=== PATIENT | female | born 1990 | race Caucasian/White ===

== ENCOUNTER 2019-10-15 17:51 | Emergency (ER) | payer MEDICAID, SELFPAY ==
[2019-10-15 17:59] VITALS: BP 120/79; PULSE 108; RESP 18; TEMP 37.1; O2SAT 95; BMI 58.2
--- NOTE | 2019-10-15 18:03 | XR_ITS ---
WS: [id number] Portable AP upright chest, 10/15/2019 Clinical Data: syncopal episode Comparison: Portable chest, 03/26/2019. Findings: No nodules, masses or effusions are seen. The heart is normal. The pulmonary vascularity is not increased. No pneumonia or pneumothorax is seen. XR/XR chest 1V portable [id number] Impression: Negative chest.
--- NOTE | 2019-10-15 18:03 | CTR_ITS ---
PROCEDURE INFORMATION: Exam: CT Head Without Contrast Exam date and time: 10/15/2019 6:24 PM Age: 29 years old Clinical indication: Pain; Dizziness and visual disturbance; Headache; Additional info: Syncopy TECHNIQUE: Imaging protocol: Computed tomography of the head without contrast. Radiation optimization: All CT scans at this facility use at least one of these dose optimization techniques: automated exposure control; mA and/or kV adjustment per patient size (includes targeted exams where dose is matched to clinical indication); or iterative reconstruction. COMPARISON: No relevant prior studies available. RADIATION DOSE METRICS: Total DLP (mGy-cm): 886.27 FINDINGS: Brain: Normal. No hemorrhage. Unremarkable white matter. No mass effect. Ventricles: Normal. No ventriculomegaly. Bones/joints: Unremarkable. No acute fracture. Sinuses: Visualized sinuses are unremarkable. No fluid levels. Mastoid air cells: Visualized mastoid air cells are well aerated. Soft tissues: Unremarkable. CT/CT head wo con* [id number] IMPRESSION: No acute intracranial abnormality. Radiation Dose CTDIVOL = (mGy): DLP = 886.27 (mGy-cm)
--- NOTE | 2019-10-15 18:04 | ECG_ITS ---
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 Measurements Intervals [place] Rate: 75 P: 28 [place]: 152 QRS: 30 QRSD: 90 T: 32 QT: 384 QTc: 431 Interpretive Statements SINUS RHYTHM WITH SINUS ARRHYTHMIA POSSIBLE RIGHT VENTRICULAR CONDUCTION DELAY [RSR (QR) IN V1/V2] No previous ECG available for comparison Electronically Signed On 10-15-2019 22:36:08 CDT by Shey Mireles M.D. [email or web address] Softwareochsner medical centerRevcastercleveland clinic [facility].[employer]/store/NU/[id number] f
--- NOTE | 2019-10-15 18:08 | W.ED.SYNCOPE ---
HPI - Syncope General: Chief Complaint: Syncope Stated Complaint: passed out Time Seen by Provider: 10/15/19 18:00 History of Present Illness: HPI narrative: Patient is a 29-year-old female comes to the ED after syncopal episode. Patient has been homeless and living outside for the past couple days. I have not had much to eat and drink patient describes that she was sitting on the ground and then started feeling tingly in her upper extremities and then lost consciousness. Patient sister was present during syncopal episode and states that patient looked pale and white and then she passed out. Sister denies patient ever hitting her head. No convulsing or shaking during syncopal episode seen by sister and she said it lasted approximately 45 seconds. When patient came to she was confused. since patient has awakened after syncopal episode she described having a headache and feeling a little nauseous. Denies any chest pain, shortness of breath, abdominal pain, vomiting or bladder/bowel symptoms. Associated symptoms: Reports headache(s), lightheadedness and nausea; Deny abdominal pain, chest pain or fever(s) Review of Systems Const: Denies: fever(s), chills or fatigue Eyes: Reports: blurry vision; Denies: change in vision or eye discomfort ENMT: Denies: throat pain, odynophagia, nasal discharge or nasal congestion Card: Reports: lightheadedness and syncope; Denies: chest pain, palpitations, edema, swelling of feet/ankles, dyspnea on exertion or orthopnea Resp: Denies: dyspnea, productive cough or non-productive cough GI: Reports: nausea; Denies: abdominal pain, vomiting, diarrhea, constipation or hematochezia : Denies: flank pain, dysuria or hematuria Musc: Denies: neck pain, back pain or extremity swelling Skin/Breast: Denies: rash or new lesions Neuro: Reports: headache(s); Denies: numbness in extremities or weakness in extremities PFSH ED PFSH: Medical History Nicotine dependence, unspecified, uncomplicated Surgical History H/O section History of cholecystectomy Family History Other COPD (chronic obstructive pulmonary disease) Cancer Diabetes Hypertension Psychiatric illness Social History Smoking and tobacco status: current every day smoker cigarettes Packs smoked per day: 0.5 Alcohol intake: never Physical Exam Const: COMMON NORMALS: no acute distress, patient oriented x3 and alert GENERAL APPEARANCE: cooperative and comfortable NUTRITIONAL APPEARANCE: obese HENMT: COMMON NORMALS: normocephalic HEAD & SCALP: normocephalic MOUTH: Normal oral and palatal mucosa present and moist mucous membranes abnormal (mild ) Details: parched THROAT: posterior oropharynx normal and uvula midline Eye: COMMON NORMALS: Equal, round and reactive pupils present, EOMs intact bilaterally and normal visual thompson by confrontation PUPIL: Yes Equal, round and reactive pupils present Neck/C-Spine: COMMON NORMALS: supple GENERAL: Yes normal visual inspection Resp: COMMON NORMALS: normal respiratory effort, No retractions, No use of accessory muscles and clear to auscultation bilaterally AUSCULTATION: clear to auscultation bilaterally Cardio: COMMON NORMALS: regular rate, regular rhythm, S1 normal heart sound present, S2 normal heart sound present, No gallops present (Cardio), No clicks present (Cardio), No murmurs present (Cardio) and Peripheral pulses 2+ throughout RATE: regular rate RHYTHM: regular rhythm HEART SOUNDS: S1 normal heart sound present and S2 normal heart sound present PERIPHERAL PULSES: Peripheral pulses 2+ throughout GI: COMMON NORMALS: Normal to inspection, nondistended, normoactive bowel sounds present, Soft to palpation, non-tender and no masses INSPECTION: Yes central obesity PALPATION: Yes Soft to palpation : COMMON NORMALS: Yes no CVA tenderness BLADDER/KIDNEY EXAM: Yes no CVA tenderness Back/Pelvis: COMMON NORMALS: no CVA tenderness Extremity: COMMON NORMALS: normal to inspection, capillary refill normal and no pedal edema Neuro: JAYDE COMA SCALE: document GCS findings [place] coma scale eye opening: Spontaneous [place] coma scale verbal response: Orientated [place] coma scale motor response: Obey commands Jayde coma scale total score: 15 COMMON NORMALS: patient oriented x3, CN's II-XII intact bilaterally, moves all extremities, no focal motor deficits and no sensory deficits noted SENSORIUM/ORIENTATION: Yes alert COORDINATION/BALANCE: [id number]-fv-[id number] test normal SPEECH: speech normal MOTOR EXAM: 5/5 motor strength present throughout COORDINATION: [id number] test normal Skin: COMMON NORMALS: no rashes or lesions noted GENERAL SKIN EXAM: no rashes or lesions noted and dry skin Course Vital Signs: Vital signs: Vital Signs Temperature 98.7 F 10/15/19 17:59 Pulse Rate 75 10/15/19 22:19 Respiratory Rate 17 10/15/19 22:19 Blood Pressure 118/69 10/15/19 22:19 Pulse Oximetry 94 10/15/19 22:19 MDM - Syncope MDM Narrative: Medical decision making narrative: Patient is a 29-year-old female comes to the ED after having a syncopal episode. Patient has been homeless and living outside the past 3 days. Sister was present and saw syncopal episode and said patient sat down and then she was gently laid down when she passed out. Denies any head trauma, bladder or bowel incontinence, shaking/convulsions during syncopal episode. Syncopal episode lasted approximately 45 seconds. Patient. Mildly dehydrated and had dry mucous membranes. Neuro exam was normal. White blood cell 12.5. CMP and UA were unremarkable. hCG was negative. EKG showed normal sinus rhythm and troponins were negative. CT of the head showed no acute findings. Patient started feeling a lot better after receiving 2 L of IV fluids. Patient diagnosed with syncopal episode due to heat. Follow-up with provider in 7 to 10 days for reevaluation. Return to ED if symptoms worsen. Patient understood and agreed with plan. Lab Data: Attestation: I reviewed the patient's lab results. Labs: Lab Results 10/15/19 10/15/19 10/15/19 Range/Units 18:14 18:14 18:14 WBC 12.5 H (4.0-10.0) 10^3/ uL RBC 5.14 (4.1-5.3) 10^6/u L Hgb 14.8 (11.5-15.3) g/dL Hct 46.8 (37.0-47.0) % MCV 91.1 (81-99) fL MCH 28.8 (28.0-34.0) pg MCHC 31.6 (30.0-36.0) g/dL RDW 13.2 (12.1-15.1) % Plt Count 361 (130-400) 10^3/c mm MPV 9.8 (7.4-10.4) fL Neut % (Auto) 62.6 % Lymph % (Auto) 28.6 % [place] % (Auto) 5.6 % Eos % (Auto) 2.2 % Baso % (Auto) 0.6 % Neut # (Auto) 7.82 H (1.8-7.7) 10^3/u L Lymph # (Auto) 3.6 (0.8-4.8) 10^3/u L [place] # (Auto) 0.7 (0.2-0.9) 10^3/u L Eos # (Auto) 0.3 (0.0-0.8) 10^3/u L Baso # (Auto) 0.1 (0.0-0.1) 10^3/u L Nucleated RBC % (a uto) 0 % Nucleated RBCs # 0.0 /100WBC Sodium 137 (136-145) mmol/L Potassium 4.0 (3.5-5.1) mmol/L Chloride 104 (98-107) mmol/L Carbon Dioxide 24 (22-29) mmol/L Anion Gap 13.0 (5-19) BUN 11 (6-20) mg/dL Creatinine 0.9 (0.5-0.9) mg/dL GFR Calculation 73.5 L (90-130) mL/min Glucose 145 H (65-115) mg/dL Calculated Osmolal ity 283 L (285-295) mOsm/k g Calcium 8.9 (8.5-10.5) mg/dL Total Bilirubin 0.2 (0.15-1.2) mg/dL AST 32 (0-32) U/L ALT 36 H (0-33) U/L Alkaline Phosphata se 107 H (35-105) IU/L Troponin T Baselin e (0-10) ng/L Troponin T 120 Min makah (0-10) ng/L Delta Troponin T (0-10) ABS# Total Protein 7.0 (6.6-8.7) g/dL Albumin 4.2 (3.5-5.2) g/dL Globulin 2.8 (1.3-4.6) g/dL HCG, Qual Negative (Negative) Urine Color (Yellow) Urine Appearance (CLEAR) Urine pH (5-7) Ur Specific Gravit y (1.005-1.030) Urine Protein (Negative) Urine Glucose (UA) (Normal) Urine Ketones (Negative) Urine Blood (Negative) Urine Nitrate (Negative) Urine Bilirubin (NEGATIVE) Urine Urobilinogen (Negative) mg/dL Ur Leukocyte Rhina ase (Negative) Urine RBC (0-2) /hpf Urine WBC (0-5) /hpf Ur Squamous Epith Cells (0-5) Amorphous Sediment Urine Bacteria (NONE) 10/15/19 10/15/19 10/15/19 Range/Units 18:14 19:39 20:13 WBC (4.0-10.0) 10^3/ uL RBC (4.1-5.3) 10^6/u L Hgb (11.5-15.3) g/dL Hct (37.0-47.0) % MCV (81-99) fL MCH (28.0-34.0) pg MCHC (30.0-36.0) g/dL RDW (12.1-15.1) % Plt Count (130-400) 10^3/c mm MPV (7.4-10.4) fL Neut % (Auto) % Lymph % (Auto) % [place] % (Auto) % Eos % (Auto) % Baso % (Auto) % Neut # (Auto) (1.8-7.7) 10^3/u L Lymph # (Auto) (0.8-4.8) 10^3/u L [place] # (Auto) (0.2-0.9) 10^3/u L Eos # (Auto) (0.0-0.8) 10^3/u L Baso # (Auto) (0.0-0.1) 10^3/u L Nucleated RBC % (a uto) % Nucleated RBCs # /100WBC Sodium (136-145) mmol/L Potassium (3.5-5.1) mmol/L Chloride (98-107) mmol/L Carbon Dioxide (22-29) mmol/L Anion Gap (5-19) BUN (6-20) mg/dL Creatinine (0.5-0.9) mg/dL GFR Calculation (90-130) mL/min Glucose (65-115) mg/dL Calculated Osmolal ity (285-295) mOsm/k g Calcium (8.5-10.5) mg/dL Total Bilirubin (0.15-1.2) mg/dL AST (0-32) U/L ALT (0-33) U/L Alkaline Phosphata se (35-105) IU/L Troponin T Baselin e 6 (0-10) ng/L Troponin T 120 Min makah 6.00 (0-10) ng/L Delta Troponin T 0 (0-10) ABS# Total Protein (6.6-8.7) g/dL Albumin (3.5-5.2) g/dL Globulin (1.3-4.6) g/dL HCG, Qual (Negative) Urine Color Yellow (Yellow) Urine Appearance Clear (CLEAR) Urine pH 5 (5-7) Ur Specific Gravit y 1.020 (1.005-1.030) Urine Protein Neg (Negative) Urine Glucose (UA) Norm (Normal) Urine Ketones Negative (Negative) Urine Blood 2+ H (Negative) Urine Nitrate Negative (Negative) Urine Bilirubin Neg (NEGATIVE) Urine Urobilinogen Norm (Negative) mg/dL Ur Leukocyte Rhina ase Negative (Negative) Urine RBC 5-10 H (0-2) /hpf Urine WBC None (0-5) /hpf Ur Squamous Epith Cells 0-4 H (0-5) Amorphous Sediment Not Reportable Urine Bacteria Trace (NONE) Imaging Data^: CT Head: Attestation: I personally reviewed and interpreted this imaging study as follows: Radiologist's impression: [place] [address] CT Scan Report Signed Patient: Jeanie Ace Unit #: [id number] : 1990 Age/Sex: 29 / F ADM Date: 10/15/19 Loc: ER Room/Bed: Attending Dr: Ordering Provider/Ordering MD: Tristen Lucas Date of Service: 10/15/19 Procedure(s): CT head wo con* [id number] Accession Number(s): [id number] Report Number: [id number] PROCEDURE INFORMATION: Exam: CT Head Without Contrast Exam date and time: 10/15/2019 6:24 PM Age: 29 years old Clinical indication: Pain; Dizziness and visual disturbance; Headache; Additional info: Syncopy TECHNIQUE: Imaging protocol: Computed tomography of the head without contrast. Radiation optimization: All CT scans at this facility use at least one of these dose optimization techniques: automated exposure control; mA and/or kV adjustment per patient size (includes targeted exams where dose is matched to clinical indication); or iterative reconstruction. COMPARISON: No relevant prior studies available. RADIATION DOSE METRICS: Total DLP (mGy-cm): 886.27 FINDINGS: Brain: Normal. No hemorrhage. Unremarkable white matter. No mass effect. Ventricles: Normal. No ventriculomegaly. Bones/joints: Unremarkable. No acute fracture. Sinuses: Visualized sinuses are unremarkable. No fluid levels. Mastoid air cells: Visualized mastoid air cells are well aerated. Soft tissues: Unremarkable. CT/CT head wo con* [id number] IMPRESSION: No acute intracranial abnormality. Radiation Dose CTDIVOL = (mGy): DLP = 886.27 (mGy-cm) Dictated By: Hussein Edwards Signed By: Hussein Edwards Signed Date/Time: 10/15/191914 DD/ 13 CXR: Attestation: I personally reviewed and interpreted this imaging study as follows: My impression: No acute findings. Pending final radiology report. EKG Data^: EKG 1: Attestation: I personally reviewed and interpreted this EKG as follows: EKG interpretation date: 10/15/19 Interpretation: Normal sinus rhythm, 87 bpm, no ST segment elevation or depression seen, P waves present. Discharge Plan Discharge Patient Disposition: Home, Self-Care Clinical Impression: Effects of heat syncope Qualifiers: Encounter type: initial encounter Qualified Code(s): T67.1XXA - Heat syncope, initial encounter Condition: Stable Prescriptions: No Action No Known Home Medications RF: 0 Discharge Orders: Discharge Order (Routine); Ordered 10/15/19 Ordered By: Tristen Lucas Referrals: Sandra Pedraza DO [Primary Care Provider] - Discharge Diet: Regular Discharge Activity: Increase activity as tolerated Patient Instructions: Heat Exhaustion (ED), Syncope (ED) Activity Restrictions/Additional Instructions: Follow-up with medical provider as directed in 7-10 days. Drink plenty of fluids and stay hydrated. Return to the ER or your medical provider if condition worsens. Please read and understand discharge instructions. If any questions, please ask. Discharge Date/Time: 10/15/19 22:19 Coding Level of Care Code ED Tire Technician for Chg Fwd Exam Comprehensive
[2019-10-15 18:24] LABS: Basophils # 0.1 10^3/uL (0.0-0.1); Basophils % 0.6 %; Eosinophils # 0.3 10^3/uL (0.0-0.8); Eosinophils % 2.2 %; Hematocrit 46.8 % (37.0-47.0); Hemoglobin 14.8 g/dL (11.5-15.3); Lymphocytes # 3.6 10^3/uL (0.8-4.8); Lymphocytes % 28.6 %; Mean Corpuscular HGB Conc 31.6 g/dL (30.0-36.0); Mean Corpuscular Hemoglobin 28.8 pg (28.0-34.0); Mean Corpuscular Volume 91.1 fL (81-99); Mean Platelet Volume 9.8 fL (7.4-10.4); Monocytes # 0.7 10^3/uL (0.2-0.9); Monocytes % 5.6 %; Neutrophils # 7.82 10^3/uL (1.8-7.7); Neutrophils % 62.6 %; Nucleated Red Blood Cells % 0 %; Platelet Count 361 10^3/cmm (130-400); Red Blood Count 5.14 10^6/uL (4.1-5.3); Red Cell Distribution Width 13.2 % (12.1-15.1); White Blood Count 12.5 10^3/uL (4.0-10.0)
[2019-10-15] MEDS: sodium chloride 0.9% 1,000 ML 999 ML IV ×2 (18:29→20:14)
[2019-10-15] MEDS: ondansetron 2 mg/ML SDV 2 mL 4 MG IVP (18:29)
[2019-10-15 18:42] LABS: Alanine Aminotransferase 36 U/L (0-33); Albumin Level 4.2 g/dL (3.5-5.2); Alkaline Phosphatase 107 IU/L (35-105); Aspartate Amino Transferase 32 U/L (0-32); Blood Urea Nitrogen 11 mg/dL (6-20); Calcium 8.9 mg/dL (8.5-10.5); Carbon Dioxide 24 mmol/L (22-29); Chloride 104 mmol/L (98-107); Globulin 2.8 g/dL (1.3-4.6); Glomerular Filtration Rate 73.5 mL/min (90-130); Glucose 145 mg/dL (65-115); Osmolality Calculated 283 mOsm/kg (285-295); Sodium 137 mmol/L (136-145); Total Bilirubin 0.2 mg/dL (0.15-1.2)
[2019-10-15 18:43] LABS: HCG, Serum Qual Negative (Negative); Troponin(5th) Baseline 6 ng/L (0-10)
[2019-10-15 19:04] VITALS: BP 116/79; PULSE 89; RESP 18; O2SAT 97
--- NOTE | 2019-10-15 19:04 | PC.NURSE ---
Report received from ORVILLE Hernandez and care transferred to ORVILLE Baldwin
[2019-10-15] MEDS: ketorolac 30 mg/mL INJ IVP (19:11)
[2019-10-15 19:44] VITALS: BP 116/79; PULSE 79; RESP 16; O2SAT 96
--- NOTE | 2019-10-15 20:04 | ECG_ITS ---
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 Measurements Intervals [place] Rate: 75 P: 28 [place]: 152 QRS: 30 QRSD: 90 T: 32 QT: 384 QTc: 431 Interpretive Statements SINUS RHYTHM WITH SINUS ARRHYTHMIA POSSIBLE RIGHT VENTRICULAR CONDUCTION DELAY [RSR (QR) IN V1/V2] No previous ECG available for comparison Electronically Signed On 10-15-2019 22:42:29 CDT by Shey Mireles M.D. [email or web address].[employer]/store/NU/[id number]/[id number] f
[2019-10-15 20:36] LABS: Urine Appearance Clear (CLEAR); Urine Color Yellow (Yellow)
[2019-10-15 20:37] LABS: Bilirubin Urine Neg (NEGATIVE); Blood Urine 2+ (Negative); Glucose Urine UA Norm (Normal); Ketones Urine Negative (Negative); Leukocyte Esterase Urine Negative (Negative); Nitrate Urine Negative (Negative); Protein Urine Neg (Negative); pH Urine 5 (5-7)
[2019-10-15 20:38] LABS: Add Urine Microscopic? YES; Urobilinogen Urine Norm (Negative)
[2019-10-15 20:50] LABS: Troponin 5 2HR Delta 0 ABS# (0-10)
[2019-10-15 20:59] LABS: Add Urine Culture? No; Bacteria Urine TRACE; Squamous Epithelial Cell Urine 0-4 (0-5)
[2019-10-15 21:42] VITALS: BP 112/57; PULSE 78; RESP 16; O2SAT 96
[2019-10-15 22:18] VITALS: BP 118/69; PULSE 78; RESP 17; O2SAT 94
[2019-10-15 22:19] VITALS: BP 118/69; PULSE 75; RESP 17; O2SAT 94
== END 2019-10-15 22:19 | disposition home or self-care (01) ==
PROVIDERS: Emergency Provider Physician Assistant; PCP Family Medicine
DX: T67.1XXA Heat syncope, initial encounter (principal); X30.XXXA Exposure to excessive natural heat, initial encounter; F17.210 Nicotine dependence, cigarettes, uncomplicated
CPT/HCPCS: 12345; 36415; 70450; 71045; 80053; 81001; 81003; 84484; 84703; 85025; 93005; 96361; 96374; 96375; 99284; J1885; J2405; J7030

== ENCOUNTER 2019-10-19 17:24 | Emergency (ER) | payer MEDICAID, SELFPAY ==
[2019-10-19 17:39] VITALS: BP 116/77; PULSE 97; RESP 16; TEMP 36.9; O2SAT 97; BMI 41.5
--- NOTE | 2019-10-19 17:45 | XRR_ITS ---
PROCEDURE INFORMATION: Exam: XR Left Ribs with PA Chest, 3 Views Exam date and time: 10/19/2019 5:46 PM Age: 29 years old Clinical indication: Injury or trauma; Fall; Initial encounter; Rib area, left side; Blunt trauma; Additional info: Left rib pain with inspiration TECHNIQUE: Imaging protocol: XR Left ribs 3 views with PA chest. COMPARISON: CR XR chest 1V portable [id number] 10/15/2019 6:31 PM FINDINGS: There is a fracture of the 10th anterolateral ribs. No additional rib fractures are seen. The lungs are clear. There is no pneumothorax. The heart size is normal. XR/XR ribs LT mn 3V w CXR1V [id number] IMPRESSION: Fracture of the left 10th anterolateral rib.
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
[2019-10-19 18:02] VITALS: BP 115/79; PULSE 90; RESP 16; O2SAT 96
[2019-10-19] MEDS: HYDROcodone-acetaminophen 7.5-325 mg Tablet 1 TAB PO (18:08)
[2019-10-19 18:37] VITALS: BP 115/79; PULSE 91; RESP 18; O2SAT 96
== END 2019-10-19 18:37 | disposition home or self-care (01) ==
PROVIDERS: Emergency Provider Physician Assistant; PCP Family Medicine
DX: S22.32XA Fracture of one rib, left side, initial encounter for closed fracture (principal); F17.210 Nicotine dependence, cigarettes, uncomplicated; W19.XXXA Unspecified fall, initial encounter
CPT/HCPCS: 12345; 71101; 99282; 99283

== ENCOUNTER 2022-09-19 12:55 | Emergency (ER) | payer MEDICAID, SELFPAY ==
[2022-09-19 13:05] VITALS: BP 118/82; PULSE 99; RESP 18; TEMP 36.7; O2SAT 98
--- NOTE | 2022-09-19 13:13 | XR_ITS ---
WS: [id number] EXAMINATION: XR shoulder RT min 2V* [id number] REASON FOR EXAM: Right shoulder pain for a month COMPARISON: None available. ORDER DATE: 09/19/2022 1:23 PM TECHNIQUE: 3 views of the right shoulder were obtained. X-RAY FINDINGS: No fractures or dislocations. Normal motion of the shoulder with internal/external rotation. No degenerative changes. Acromioclavicular joint appears unremarkable. Limited visualization of the adjacent hemithorax is unremarkable. XR/XR shoulder RT min 2V* [id number] IMPRESSION: No fractures or dislocations of the right shoulder.
--- NOTE | 2022-09-19 13:34 | W.ED.EXTPRO ---
HPI - Extremity Problem General: Chief complaint: Extremity Injury, Upper Stated complaint: Right Shoulder to arm pain/numb Time Seen by Provider: 09/19/22 13:18 History of Present Illness: Patient is a 32-year-old female comes to the ED with right shoulder pain. Symptoms started approximately 1 month ago. Approximately 2 years ago she had a right shoulder injury that they said was a torn rotator cuff. Patient did not get any further treatment on it. She denies any known reinjury or trauma about a month ago to cause right shoulder pain. She states that shoulder pain that shoots down her right arm. She states that her pain currently is mild and she rates it a 2 out of 10. She took a dose of Tylenol and ibuprofen this morning before coming to the ED. patient also describes some tingling sensation and numbness in her right hand fifth and fourth digits. Patient states she will wake up in the mornings and the numbness and tingling in hand will be worse. Denies any worsening or improving factors. Associated symptoms: Deny chest pain, fever(s) or rash Review of Systems Const: Denies: fever(s), chills or fatigue Eyes: Denies: change in vision or eye discomfort ENMT: Denies: throat pain, odynophagia, nasal discharge or nasal congestion Card: Denies: chest pain, palpitations, edema, swelling of feet/ankles, dyspnea on exertion or orthopnea Resp: Denies: dyspnea, productive cough or non-productive cough GI: Denies: abdominal pain, nausea, vomiting, diarrhea, constipation or hematochezia : Denies: flank pain, dysuria or hematuria Musc: Reports: extremity pain (Right shoulder) and other (Right hand-fourth and fifth digit numbness and tingling); Denies: neck pain, back pain or extremity swelling Skin/Breast: Denies: rash or new lesions Neuro: Denies: headache(s), numbness in extremities or weakness in extremities PFS ED PFSH: Medical History (Updated 09/19/22 @ 14:43 by THO Cho) Nicotine dependence, unspecified, uncomplicated Surgical History H/O section History of cholecystectomy Family History Other COPD (chronic obstructive pulmonary disease) Cancer Diabetes Hypertension Psychiatric illness Social History Smoking and tobacco status: current every day smoker cigarettes Packs smoked per day: 0.5 Alcohol intake: never Substance/Drug Use: never Physical Exam Const: COMMON NORMALS: patient oriented x3 HENMT: COMMON NORMALS: normocephalic HEAD & SCALP: normocephalic MOUTH: Normal oral and palatal mucosa present THROAT: posterior oropharynx normal and uvula midline Neck/C-Spine: COMMON NORMALS: supple GENERAL: Yes normal visual inspection Resp: COMMON NORMALS: normal respiratory effort, No retractions, No use of accessory muscles and clear to auscultation bilaterally AUSCULTATION: clear to auscultation bilaterally Cardio: COMMON NORMALS: regular rate, regular rhythm, S1 normal heart sound present, S2 normal heart sound present, No gallops present (Cardio), No clicks present (Cardio), No murmurs present (Cardio) and Peripheral pulses 2+ throughout RATE: regular rate RHYTHM: regular rhythm HEART SOUNDS: S1 normal heart sound present and S2 normal heart sound present PERIPHERAL PULSES: Peripheral pulses 2+ throughout GI: COMMON NORMALS: Normal to inspection, nondistended, normoactive bowel sounds present, Soft to palpation, non-tender and no masses PALPATION: Yes Soft to palpation : COMMON NORMALS: Yes no CVA tenderness BLADDER/KIDNEY EXAM: Yes no CVA tenderness Back/Pelvis: COMMON NORMALS: no CVA tenderness Extremity: NARRATIVE EXTREMITY EXAM: Right shoulder?tenderness around AC joint of shoulder. Full range of motion. Neurovascular intact distally. GENERAL: Yes normal exam except as noted RIGHT UPPER EXTREMITY: Yes wrist Right wrist: Yes inspection (Normal), Yes palpation (non tender), Yes ROM (Full range of motion) and Yes special tests Right wrist special tests: Phalen's test: Positive Neuro: COMMON NORMALS: patient oriented x3 GAIT: Yes Normal gait present Skin: GENERAL SKIN EXAM: dry skin Course Vital Signs: Vital signs: Vital Signs Temperature 98.0 F 09/19/22 13:05 Pulse Rate 99 09/19/22 13:05 Respiratory Rate 18 09/19/22 13:05 Blood Pressure 118/82 09/19/22 13:05 Pulse Oximetry 98 09/19/22 13:05 Oxygen Delivery Me thod Room Air 09/19/22 13:05 MDM - Extremity (Nontraumatic) Medical Decision Making Patient is a 32-year-old female comes to the ED with right shoulder pain. Symptoms started approximately 1 month ago. Approximately 2 years ago she had a right shoulder injury that they said was a torn rotator cuff. Patient did not get any further treatment on it. She denies any known reinjury or trauma about a month ago to cause right shoulder pain. She states that shoulder pain that shoots down her right arm. She states that her pain currently is mild and she rates it a 2 out of 10. She took a dose of Tylenol and ibuprofen this morning before coming to the ED. patient also describes some tingling sensation and numbness in her right hand fifth and fourth digits. Patient states she will wake up in the mornings and the numbness and tingling in hand will be worse. Denies any worsening or improving factors. Right shoulder?tenderness around AC joint of shoulder. Full range of motion. Neurovascular intact distally. X-ray of right shoulder showed no acute fractures or dislocations. Given patient's past rotator cuff injury on the right shoulder and chronic right shoulder pain I put a referral to Ortho for follow-up. She was stable for discharge home and told to take [id number] ibuprofen or Tylenol for pain. Patient understood and agreed with plan. Lab Data Radiology Impressions Shoulder X-Ray 09/19/22 13:13 IMPRESSION: No fractures or dislocations of the right shoulder. Discharge Plan Discharge Patient Disposition: Home Clinical Impression: Carpal tunnel syndrome of right wrist Pain in right shoulder Qualifiers: Chronicity: acute Qualified Code(s): M25.511 - Pain in right shoulder Condition: Stable Prescriptions: No Action No Known Home Medications Discharge Orders: Discharge ED (Routine); Ordered 09/19/22 Ordered By: Tristen Lucas Referrals: Sandra Pedraza DO [Primary Care Provider] - Discharge Diet: Regular Discharge Activity: Increase activity as tolerated Patient Instructions: Shoulder Pain (ED) Activity Restrictions/Additional Instructions: Follow-up with medical provider as directed. Case management should be calling you in the next couple days to set up an appoint with Ortho for follow-up. Take [id number] ibuprofen or Tylenol to help with pain. Return to the ER or your medical provider if condition worsens. Please read and understand discharge instructions. Thank you for choosing [facility] for your healthcare needs today. Please realize this is an emergency room and that we are providing you with a medical screening exam and this may not be complete and all inclusive of all the testing and or work up that you may need to determine your ailment or severity of your illness. It is very important that you follow up as instructed or that you return to the Emergency Department should you have concerns or if your condition changes or worsens in any way. Coding Level of Care Code ED Clean Up Worker for Jak Antonio
--- NOTE | 2022-09-19 14:54 | PC.SOCIAL ---
Addendum entered by Harleen Ardon 10/06/22 13:52: pmo manager received the following message from the ortho clinic regarding follow up appointment: attempt made to contact patient - vm not set up - mailed letter to call our clinic to schedule w/ dr velarde will need two separate appts for each complaint Original Note: Ortho referral Message sent to ortho clinic at this time; clinic to contact patient with appt date/time.
== END 2022-09-19 14:56 | disposition home or self-care (01) ==
PROVIDERS: Emergency Provider Physician Assistant; PCP Family Medicine
DX: G56.01 Carpal tunnel syndrome, right upper limb (principal); M25.511 Pain in right shoulder; F17.210 Nicotine dependence, cigarettes, uncomplicated
CPT/HCPCS: 73030; 99283

== ENCOUNTER 2023-01-19 17:10 | Emergency (ER) | payer MEDICAID, SELFPAY ==
[2023-01-19 17:23] VITALS: BP 101/71; PULSE 102; RESP 18; TEMP 36.9; O2SAT 97; BMI 38.2
--- NOTE | 2023-01-19 18:37 | ED_ITS ---
HPI - Skin/Abscess/Foreign Bdy General: Chief complaint: Skin/Abscess/Foreign Body Stated complaint: right eye swelling, mass on back Time Seen by Provider: 01/19/23 18:37 History of Present Illness: 32-year-old female comes in today with swelling to the right eyebrow with a crusted lesion and surrounding erythema. Patient also has a crusted lesion to her left shoulder thoracic back area with also surrounding redness and a crusted lesion. Patient endorses injuries from falling into a [place]anna wire fence that occurred 4 to 5 days ago. Patient appears nontoxic. Patient reports tenderness at the site. Patient has a history of Bactrim allergy. Patient denies MRSA. Associated symptoms: Deny fever(s) or vomiting Review of Systems General: Reports: 10 or more systems reviewed and unremarkable except in HPI and below Const: Denies: fever(s) Card: Denies: chest pain Resp: Denies: dyspnea GI: Denies: vomiting : Denies: difficulty voiding Musc: Denies: extremity pain Skin/Breast: Reports: erythema and changing lesions Neuro: Denies: headache(s) [facility] ED PFSH: Medical History (Updated 01/19/23 @ 18:51 by GAYLE Galan) Nicotine dependence, unspecified, uncomplicated Surgical History H/O section History of cholecystectomy Family History Other COPD (chronic obstructive pulmonary disease) Cancer Diabetes Hypertension Psychiatric illness Social History Smoking and tobacco/nicotine status: current every day tobacco/nicotine user cigarettes Packs smoked per day: 0.5 Alcohol intake: never Substance/Drug Use: never Physical Exam Const: COMMON NORMALS: alert HENMT: COMMON NORMALS: normocephalic HEAD & SCALP: normocephalic FACE & SINUS: Facial tenderness on exam of face and sinuses (Right eyebrow) and other (2 cm area of redness surrounding a crusted lesion with mild swelling. ) OTHER: No fluctuance is noted to the area of erythema of the right eyebrow. Patient reported the swelling was increased after her nap this afternoon. Neck/C-Spine: COMMON NORMALS: full ROM, no lymphadenopathy and no meningeal signs Resp: COMMON NORMALS: normal respiratory effort and clear to auscultation bilaterally AUSCULTATION: clear to auscultation bilaterally Cardio: COMMON NORMALS: regular rate and regular rhythm RATE: regular rate RHYTHM: regular rhythm GI: COMMON NORMALS: non-tender Back/Pelvis: COMMON NORMALS: no thoracic nor lumbar tenderness OTHER: 5 cm area of redness with a central crusted lesion induration of tissues noted. Extremity: COMMON NORMALS: normal to inspection Neuro: SENSORIUM/ORIENTATION: Yes alert MENINGEAL SIGNS: Yes no meningeal signs Skin: SKIN IMAGES (FEMALE): 1. 4 cm area of redness with a central crusted lesion induration of the skin, no fluctuance 2. 2 cm area of redness with central crusted lesion mild swelling, no fluctuance LESIONS: other (1 lesion to the right eyebrow, 1 to the left posterior thorax) Course Vital Signs: Vital signs: Vital Signs Temperature 98.5 F 01/19/23 17:23 Pulse Rate 102 H 01/19/23 17:23 Respiratory Rate 18 01/19/23 17:23 Blood Pressure 101/71 01/19/23 17:23 Pulse Oximetry 97 01/19/23 17:23 Oxygen Delivery Me thod Room Air 01/19/23 17:23 MDM - Skin/Abscess/Foreign Bdy Medicial Decision Making Patient has 2 wounds from a injury when she accidentally tripped and fell into a [place] wire fence. Incident occurred about a week ago. Patient has some erythema and redness to 2 crusted lesions with surrounding tenderness. Patient appears nontoxic. Patient has not been on any antibiotics. Patient denies any chronic medical problems. Differential diagnosis includes abscess, cellulitis, wound infection. We will go ahead and treat wounds infection with clindamycin 600 mg 4 times a day for 7 days. Patient was given a dose of ceftriaxone with clindamycin in the emergency department. Patient was recommended to follow-up in 2 to 3 days for recheck return to the ER for worsening symptoms or new concerns. No radiology studies performed this visit Discharge Plan Discharge Patient Disposition: Home Clinical Impression: Infected wound Condition: Stable Prescriptions: New clindamycin HCl 300 mg capsule 600 mg PO Q6H 7 Days Qty: 56 0RF Discharge Orders: Discharge ED (Routine); Ordered 01/19/23 Ordered By: Andres Jones Referrals: Sandra Pedraza DO [Primary Care Provider] - Discharge Diet: Usual diet Discharge Activity: Increase activity as tolerated Patient Instructions: Wound Infection (ED) Activity Restrictions/Additional Instructions: Apply antibiotic to wounds twice a day until healed. Use warm moist packs to the areas for further pain relief. Follow-up with primary care in 3 to 5 days for recheck. Return to ED for fevers greater than 100.5, inability to hold fluids down, or new concerns. Coding Level of Care Code ED Yard Assistant for Jak Antonio
[2023-01-19] MEDS: clindamycin 150 mg Capsule 600 MG PO (19:19)
[2023-01-19] MEDS: cefTRIAXone 1,000 MG in water for injection-sterile 2.1 ML 24 MG IM (19:21)
[2023-01-19] MEDS: mupirocin oint 22 gm 1 APPLIC TOPICAL (19:26)
[2023-01-19 19:52] VITALS: PULSE 69; O2SAT 95
[2023-01-19] MEDS: ondansetron 4 MG Tablet PO (20:05)
[2023-01-19 21:14] VITALS: PULSE 72; O2SAT 98
== END 2023-01-19 20:30 | disposition home or self-care (01) ==
PROVIDERS: Emergency Provider Nurse Practitioner Family; PCP Family Medicine
DX: S01.131A Puncture wound without foreign body of right eyelid and periocular area, initial encounter (principal); S21.232A Puncture wound without foreign body of left back wall of thorax without penetration into thoracic cavity, initial encounter; L08.9 Local infection of the skin and subcutaneous tissue, unspecified; W01.118A Fall on same level from slipping, tripping and stumbling with subsequent striking against other sharp object, initial encounter; F17.210 Nicotine dependence, cigarettes, uncomplicated
CPT/HCPCS: 96372; 99284; J0696; Q0162